=== PATIENT | female | born 1985 | race Caucasian/White ===

== ENCOUNTER 2017-01-09 17:45 | Emergency (ER) | payer SELFPAY ==
[~2017-01-09] VITALS: Ht 165.1 cm; Wt 62.9 kg
[2017-01-09 17:50] VITALS: Ht 165.1 cm; Wt 62.9 kg
[2017-01-09 19:56] LABS: URINE BLOOD (Dip) POC Trace-intact (NEGATIVE)
[2017-01-09] MEDS ORDERED: ACET500C5 PO (20:07)
[2017-01-09] MEDS ORDERED: METO10TA92 PO (20:07)
--- NOTE | 2017-01-09 20:25 | ERD ---
ER Documentation Chief Complaint Chief Complaint BIB SELF C/O PELVIC PAIN X 1 WEEK WITH NAUSEA/VOMITING. HPI Patient is a 31-year-old female who presents to ED for concerns of pelvic pain, nausea and vomiting 1 week. Patient reports feeling nauseous throughout the day. Patient reports one episode of nonbloody, nonbilious vomiting today. Patient states she had 3 episodes yesterday. Patient denies any fevers, chills , abdominal pain, dysuria, frequency, urgency, diarrhea. Patient denies any vaginal bleeding or excessive vaginal discharge. Patient is sexually active however she denies any concerns of STDs. Patient states her last mental period was on 12-05-16. Patient is unsure if she is at this time. Denies using at home test. ROS All systems reviewed and are negative except as per history of present illness. Medications Home Meds Active Scripts Metoclopramide* (Reglan*) 10 Mg Tablet, 10 MG PO Q6 Y for NAUSEA AND/OR VOMITING , #10 TAB Prov:SHARMAINE FISCHER PA-C 01/09/17 Acetaminophen* (Tylophen*) 500 Mg Capsule, 1 CAP PO Q6H Y for PAIN AND OR ELEVATED TEMP, #20 CAP Prov:SHARMAINE FISCHER PA-C 01/09/17 Allergies Allergies: Coded Allergies: ciprofloxacin (Verified Allergy, Unknown, 01/09/17) levofloxacin (Verified Allergy, Unknown, 01/09/17) PMhx/Soc Medical and Surgical Hx: pt denies Medical Hx, pt denies Surgical Hx History of Surgery: No Anesthesia Reaction: No Hx Neurological Disorder: No Hx Respiratory Disorders: No Hx Cardiac Disorders: No Hx Psychiatric Problems: No Hx Miscellaneous Medical Probl: No Hx Alcohol Use: No Hx Substance Use: No Smoking Status: Never smoker Physical Exam Vitals Vital Signs Date Time Temp Pulse Resp B/P Pulse Ox O2 Delivery O2 Flow Rate FiO2 01/09/17 17:50 97.7 96 18 116/66 99 Physical Exam GENERAL: Well-developed, well-nourished female. Appears in no acute distress. HEAD: Normocephalic, atraumatic. EYES: Pupils are equally reactive bilaterally. EOMs grossly intact. No conjunctival erythema. ENT: Moist mucous membranes. No uvula deviation. No kissing tonsils. NECK: Supple. No meningismus. Normal range of motion of the neck. LUNG: Clear to auscultation bilaterally. No rhonchi, wheezing, rales or coarse breath sounds. HEART: Regular rate and rhythm. No murmurs, rubs or gallops. ABDOMEN: . Soft, nondistended. Tender to palpation over the suprapubic region. Positive bowel sounds in all four quadrants. No rebound tenderness, no guarding. (-) McBurney's point tenderness. No CVA tenderness. EXTREMITIES: Equal pulses bilaterally. No peripheral clubbing, cyanosis or edema. NEUROLOGIC: Alert and oriented. Moving all four extremities without any difficulty. Normal speech. Steady gait. SKIN: Normal color. Warm and dry. No rashes or lesions. Results 24 hrs Laboratory Tests Test 01/09/17 19:54 Bedside Urine pH (LAB) 6.0 Bedside Urine Protein (LAB) Negative Bedside Urine Glucose (UA) Negative Bedside Urine Ketones (LAB) Negative Bedside Urine Blood Trace-intact Bedside Urine Nitrite (LAB) Negative Bedside Urine Leukocyte Esterase (L Negative Procedures/MDM MEDICAL DECISION MAKING: Patient is a 31-year-old female who presents to the ED for concerns of pelvic pain 1 week along with nausea and vomiting. Vital signs were reviewed. Patient is afebrile. Patient was not hypoxic. Urine dip was negative for acute infection. Urine test was positive. Patient did not know she was prior to coming to the ED. I did offer the patient a workup including an ultrasound study however she declined due to insurance reasons. Patient and her friend were both advised and I am unable to rule out any related emergencies or conditions. Unable to rule out ovarian torsion , ectopic , molar , subchorionic hemorrhage, anembryonic . Patient understands that risks and continues to deny further testing. Patient states that she will follow up with her own doctor and obtain a referral to OBGYN once she figures out her insurance. Low suspicion for UTI or pyelonephritis at this time. PRESCRIPTIONS: Tylenol, Reglan DISCHARGE: At this time, patient is stable for discharge and outpatient management. I have instructed the patient to follow-up with his/her primary care physician in 1-2 days. Patient was advised to follow up with OBGYN. I have discussed with the patient the possibility of needing to see a specialist for further workup and imaging studies if symptoms persist. I have instructed the patient to promptly return to the ER for any new or worsening symptoms including increased pain, fever, nausea, vomiting, vaginal bleeding, weakness or LOC. The patient and/or family expressed understanding of and agreement with this plan. All questions were answered. Home care instructions were provided. Disclaimer: Inadvertent spelling and grammatical errors are likely due to EHR/ dictation software use and do not reflect on the overall quality of patient care. Also, please note that the electronic time recorded on this note does not necessarily reflect the actual time of the patient encounter. Departure Diagnosis: Primary Impression: Positive test Additional Impression: Nausea and vomiting Vomiting type: unspecified Vomiting Intractability: unspecified Qualified Code: R11.2 - Nausea and vomiting, intractability of vomiting not specified, unspecified vomiting type Condition: Stable Patient Instructions: Nausea and Vomiting-Adult, , New Dx Referrals: [facility] YOU HAVE RECEIVED A MEDICAL SCREENING EXAM AND THE RESULTS INDICATE THAT YOU DO NOT HAVE A CONDITION THAT REQUIRES URGENT TREATMENT IN THE EMERGENCY DEPARTMENT. FURTHER EVALUATION AND TREATMENT OF YOUR CONDITION CAN WAIT UNTIL YOU ARE SEEN IN YOUR DOCTORS OFFICE WITHIN THE NEXT 1-2 DAYS. IT IS YOUR RESPONSIBILITY TO MAKE AN APPOINTMENT FOR FOLOW-UP CARE. IF YOU HAVE A PRIMARY DOCTOR --you should call your primary doctor and schedule an appointment IF YOU DO NOT HAVE A PRIMARY DOCTOR YOU CAN CALL OUR PHYSICIAN REFERRAL HOTLINE AT IF YOU CAN NOT AFFORD TO SEE A PHYSICIAN YOU CAN CHOSE FROM THE FOLLOWING [facility] [address] [facility] [address] [facility] [address] [facility] [address] [facility]. [facility] [address] [facility]. [facility]. [address] [facility] YOU HAVE RECEIVED A MEDICAL SCREENING EXAM AND THE RESULTS INDICATE THAT YOU DO NOT HAVE A CONDITION THAT REQUIRES URGENT TREATMENT IN THE EMERGENCY DEPARTMENT. FURTHER EVALUATION AND TREATMENT OF YOUR CONDITION CAN WAIT UNTIL YOU ARE SEEN IN YOUR DOCTORS OFFICE WITHIN THE NEXT 1-2 DAYS. IT IS YOUR RESPONSIBILITY TO MAKE AN APPOINTMENT FOR FOLOW-UP CARE. IF YOU HAVE A PRIMARY DOCTOR --you should call your primary doctor and schedule and appointment IF YOU DO NOT HAVE A PRIMARY DOCTOR YOU CAN CALL OUR PHYSICIAN REFERRAL HOTLINE AT . IF YOU CAN NOT AFFORD TO SEE A PHYSICIAN YOU CAN CHOSE FROM THE FOLLOWING [facility] INSTITUTIONS: [facility] [address] [place] [address] [facility] [address] [place] [address] [facility] [address] [place] [address] RESEARCH AND EVALUATION ANA[place] [address] [facility] [address] [place] [address] OFFICE FAX [facility] [address] [place] [address] [address] [place] [address] [place] [address] [address] ALVAR[address]O [facility] [address] [facility], [address], [facility] [address] [address] [address] [place] [address] [facility] [address] [place] [address] [address] [facility] [address] - ANASTASIA CASTELLANOS [address], [facility] [address] [address] [address] [facility]. [address], [facility] [address] [address] [address] [place] [address] Additional Instructions: Given that you declined workup and ultrasound, unable to rule out any related problems or emergencies. Unable to rule out ovarian torsion. Follow-up with your primary care physician for referral to an RESEARCH AND EVALUATION ANALYST DEVENDRA. See referral list of nearby OGBGYN clinics. Call your primary care doctor or OBGYN TOMORROW for an appointment during the next 1-2 days.See the doctor sooner or return here if your condition worsens before your appointment time. SHARMAINE FISCHER PA-C Jan 09, 2017 20:25
== END 2017-01-09 20:33 | disposition home or self-care (01) ==
LOC: FTE 17:45
DX: R11.2 Nausea with vomiting, unspecified (principal); R10.2 Pelvic and perineal pain; Z33.1 Pregnant state, incidental
CPT/HCPCS: 81003; 99283